=== PATIENT | male | born 1980 | race Caucasian/White ===

== ENCOUNTER 2022-10-24 01:36 | Emergency (ER) | payer MEDICAID ==
[~2022-10-24] VITALS: Ht 167.6 cm; Wt 75.7 kg
[2022-10-24] MEDS ORDERED: LORAZEPAM 1 MG TABLET PO ONE (02:00)
--- NOTE | 2022-10-24 02:00 | NUR ---
KEYLARA 89 FROM HOME WITH CC OF SOB. -FEVER AND COUGH. PT AAOX4, IN NAD. PLACED COMFORTABLY IN BED, VITALS CHECKED.
--- NOTE | 2022-10-24 02:05 | NUR ---
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
[2022-10-24 02:21] LABS: BASOPHILS # (AUTO) 0.1 K/uL (0.0-0.2); BASOPHILS % (AUTO) 1.1 % (0.0-2.0); EOSINOPHILS % (AUTO) 1.4 % (0.0-6.0); HEMATOCRIT 41 % (39-51); HEMOGLOBIN 14.2 g/dL (13.5-17.5); LYMPHOCYTES # (AUTO) 1.7 K/uL (0.8-4.8); LYMPHOCYTES % (AUTO) 21.7 % (20.0-44.0); MEAN CORPUSCULAR HGB CONC 35 g/dl (31.0-36.0); MEAN CORPUSCULAR VOLUME 90 fL (80-96); MONOCYTES # (AUTO) 0.5 K/uL (0.1-1.30); MONOCYTES % (AUTO) 5.9 % (2.0-12.0); NEUTROPHILS # (AUTO) 5.4 K/uL (1.8-8.9); NEUTROPHILS % (AUTO) 69.9 % (43.0-81.0); PLATELET COUNT (AUTO) 192 K/uL (150-450); RED BLOOD CELL COUNT(AUTO) 4.52 MIL/uL (4.5-6.0); WHITE BLOOD COUNT (AUTO) 7.8 K/uL (4.3-11.0)
[2022-10-24] MEDS ORDERED: LORAZEPAM 0.5 MG TABLET ONE (02:22)
[2022-10-24 02:27] LABS: CALCIUM, SERUM 9.3 mg/dL (8.5-10.1); CARBON DIOXIDE 21 mmol/L (21-32); CHLORIDE 105 mmol/L (98-107); CREATININE 1.1 mg/dL (0.6-1.3); GLUCOSE 152 mg/dL (74-106); POTASSIUM 3.4 mmol/L (3.5-5.1); SODIUM SERUM 139 mmol/L (136-145); UREA NITROGEN, BLOOD 21 mg/dL (7-18)
--- NOTE | 2022-10-24 02:40 | NUR ---
XR AT BEDSIDE
--- NOTE | 2022-10-24 03:05 | NUR ---
20GA TO RH ESTABLISHED
--- NOTE | 2022-10-24 03:53 | NUR ---
Patient discharged to home in stable condition. Written and verbal after care instructions given. Patient verbalizes understanding of instruction. IV removed. Catheter intact and site benign. Pressure and 4x4 applied to site. No bleeding noted.
[2022-10-24 03:54] VITALS: BP 136/89
== END 2022-10-24 03:57 | disposition home or self-care (01) ==
LOC: ER 01:41
DX: F41.9 Anxiety disorder, unspecified (principal)
CPT/HCPCS: 36415; 71045-TC; 80048-TC; 84484-TC; 85025-TC; 85378-TC